=== PATIENT | female | born 1985 | race Caucasian/White ===

== ENCOUNTER → 2023-12-29 15:10 | Outpatient (REF) | payer OTHER, SELFPAY | LOC: REG 15:10 | PROVIDERS: ATTENDING PHYSICIAN Obstetrics & Gynecology | DX: Z34.93 Encounter for supervision of normal pregnancy, unspecified, third trimester (principal) | CPT/HCPCS: 36415; 86850; 86900; 86901; J2790 ==

== ENCOUNTER → 2024-02-23 15:35 | Outpatient (REF) | payer OTHER, SELFPAY | LOC: PNTC 15:35 | PROVIDERS: ATTENDING PHYSICIAN Obstetrics & Gynecology | DX: O99.280 Endocrine, nutritional and metabolic diseases complicating pregnancy, unspecified trimester (principal); O09.819 Supervision of pregnancy resulting from assisted reproductive technology, unspecified trimester | CPT/HCPCS: 59025; 76815 ==

== ENCOUNTER → 2024-03-01 15:35 | Outpatient (REF) | payer OTHER, SELFPAY | LOC: PNTC 15:35 | PROVIDERS: ATTENDING PHYSICIAN Obstetrics & Gynecology | DX: O09.819 Supervision of pregnancy resulting from assisted reproductive technology, unspecified trimester (principal); O99.280 Endocrine, nutritional and metabolic diseases complicating pregnancy, unspecified trimester | CPT/HCPCS: 59025; 76815 ==

== ENCOUNTER → 2024-03-08 14:27 | Outpatient (REF) | payer OTHER, SELFPAY | LOC: PNTC 14:27 | PROVIDERS: ATTENDING PHYSICIAN Obstetrics & Gynecology | DX: O09.819 Supervision of pregnancy resulting from assisted reproductive technology, unspecified trimester (principal); O99.280 Endocrine, nutritional and metabolic diseases complicating pregnancy, unspecified trimester | CPT/HCPCS: 59025; 76816 ==

== ENCOUNTER → 2024-03-15 14:32 | Outpatient (REF) | payer OTHER, SELFPAY | LOC: PNTC 14:32 | PROVIDERS: ATTENDING PHYSICIAN Obstetrics & Gynecology | DX: O09.819 Supervision of pregnancy resulting from assisted reproductive technology, unspecified trimester (principal); O99.280 Endocrine, nutritional and metabolic diseases complicating pregnancy, unspecified trimester | CPT/HCPCS: 59025; 76815; 76818 ==

== ENCOUNTER 2024-03-18 19:27 | Inpatient (IN) | payer OTHER, SELFPAY ==
[2024-03-18 19:49] VITALS: BP 143/82; BMI 28.1
[2024-03-18 20:36] LABS: % Basophils 0.4 % (0-2); % Eosinophils 2.9 % (0-6); % Immature Granulocytes 0.6 % (0-0.5); % Lymphocytes 22.9 % (20.5-51.1); % Monocytes 6.7 % (1.7-9.3); % Neutrophils 66.5 % (42.2-75.2); Absolute Eosinophils 0.2 10^3/uL (0-0.7); Absolute Immature Granulocytes 0.1 10^3/uL (0-0.05); Absolute Lymphocytes 1.9 10^3/uL (1.2-3.4); Absolute Monocytes 0.6 10^3/uL (0.1-0.6); Absolute Neutrophils 5.5 10^3/uL (1.4-6.5); Hematocrit 37.7 % (37.0-47.0); Hemoglobin 13.5 g/dL (12.0-16.0); Mean Corp Hgb Conc. 35.8 g/dL (33.0-37.0); Mean Corpuscular Hgb 34.8 pg (27.0-31.0); Mean Corpuscular Volume 97.2 fL (81.0-99.0); Mean Platelet Volume 11.9 fL (7.4-10.4); Nucleated Red Blood Cells % 0 %; Platelet Count 158 10^3/uL (130-400); Red Blood Cell Count 3.88 10^6/uL (4.20-5.40); Red Cell Dist. Width 12.8 % (11.5-14.5); White Blood Cell Count 8.3 10^3/uL (4.8-10.8)
[2024-03-18] MEDS: CYTOTEC 50 MICROGRAM VAG (21:07)
[2024-03-18 21:38] LABS: Urine Albumin Negative (Neg - Trace); Urine Bilirubin Negative (Negative); Urine Character Clear (Clear); Urine Color Straw; Urine Glucose Negative (Negative); Urine Ketone Negative (Negative); Urine Leukocyte Trace (Negative); Urine Nitrite Negative (Negative); Urine Occult Blood Negative (Negative); Urine Urobilinogen Negative (Neg - 1+)
[2024-03-18 21:46] LABS: Urine Bacteria Few (Negative); Urine Red Blood Cell 0-2 /HPF (0-2); Urine White Cell 0-2 /HPF (0-5)
[2024-03-18 21:56] LABS: ALT (SGPT) 17 U/L (0-35); AST (SGOT) 28 U/L (14-36); Albumin 3.4 g/dl (3.5-5.0); Alkaline Phosphatase 193 U/L (38-126); Blood Urea Nitrogen 16 mg/dl (7-17); Calcium 9.2 mg/dl (8.4-10.2); Carbon Dioxide 21 mmol/L (22-30); Chloride 106 mmol/L (98-107); Estimated Creatinine Clearance > 125 ml/min; Glucose 147 mg/dl (70-99); Potassium 4.2 mmol/L (3.5-5.1); Sodium 135 mmol/L (135-145); Total Bilirubin 0.2 mg/dl (0.2-1.3); Total Protein 5.9 g/dl (6.3-8.2); eGFR > 60.00
[2024-03-18 22:04] LABS: Protein/creatinine Ratio 1.1; Urine Protein 14 mg/dl
[2024-03-19] MEDS: CYTOTEC 50 MICROGRAM PO (01:34)
[2024-03-19] MEDS: CYTOTEC PO ×4 (05:55→16:52)
[2024-03-19] MEDS: LR 1000 IV ×3 (07:00→17:49)
[2024-03-19] MEDS: SUBLIMAZE 100 MCG EPIDURAL (07:15)
[2024-03-19] MEDS: FENTANYL/BUPIVACAINE 100 EPIDURAL ×3 (07:16→21:33)
[2024-03-19] MEDS: SYNTHROID 88 MCG PO (08:31)
[2024-03-19] MEDS: PITOCIN 30 UNITS/NSS 500 ML IV (10:50)
[2024-03-20] MEDS: TYLENOL 1000 MG PO (01:55)
[2024-03-20] MEDS: GENTAMICIN 59.875 MG IV (02:08)
[2024-03-20] MEDS: BICITRA 30 ML PO (02:48)
[2024-03-20] MEDS: CLEOCIN 50 IV ×3 (02:51→17:42)
[2024-03-20 03:38] LABS: Cord ABG Comment CORD BLOOD
[2024-03-20 03:43] LABS: B.E. Cord ABG -3.5 mMOL/L; HCO3 Cord ABG 21.5 mmol/L; O2 Saturation % Cord ABG 61.6 %; PCO2 Cord ABG 38 mmHg; PO2 Cord ABG 29 mmHg; pH Cord ABG 7.36
[2024-03-20] MEDS: TORADOL 15 MG IV ×4 (05:17→23:31)
[2024-03-20] MEDS: SYNTHROID 88 MCG PO (06:43)
[2024-03-20] MEDS: AMPICILLIN 108 MG IV ×3 (08:34→20:45)
[2024-03-20] MEDS: PRENATAL PLUS 1 TABLET PO (08:35)
[2024-03-20 12:42] LABS: Hemoglobin 12.3 g/dL (12.0-16.0); Mean Corp Hgb Conc. 36.2 g/dL (33.0-37.0); Mean Corpuscular Hgb 35.2 pg (27.0-31.0); Mean Corpuscular Volume 97.4 fL (81.0-99.0); Mean Platelet Volume 11.8 fL (7.4-10.4); Nucleated Red Blood Cells % 0 %; Platelet Count 176 10^3/uL (130-400); Red Blood Cell Count 3.49 10^6/uL (4.20-5.40); White Blood Cell Count 35.2 10^3/uL (4.8-10.8)
[2024-03-20] MEDS: TYLENOL 650 MG PO (13:58)
[2024-03-20] MEDS: SENOKOT-S 1 TABLET PO (13:58)
[2024-03-20 14:25] LABS: Absolute Neutrophils -Man Diff 33.7 10^3/uL (1.4-6.5); Band Neutrophils 20 % (0-3); Lymphocytes 3 % (20-51); Monocytes 1 % (2-9); Segmented Neutrophils 76 % (42-75)
[2024-03-20 14:26] LABS: Normal RBC Morphology Yes; Platelets Checked YES; Total Cells Counted 100
[2024-03-20] MEDS: AMPICILLIN IV (20:45)
[2024-03-21] MEDS: CLEOCIN 50 IV ×3 (02:28→18:04)
[2024-03-21] MEDS: AMPICILLIN 108 MG IV ×4 (03:04→20:45)
[2024-03-21 04:58] LABS: Hemoglobin 10.1 g/dL (12.0-16.0); Mean Corp Hgb Conc. 36.1 g/dL (33.0-37.0); Mean Corpuscular Hgb 34.6 pg (27.0-31.0); Mean Corpuscular Volume 95.9 fL (81.0-99.0); Mean Platelet Volume 11.7 fL (7.4-10.4); Platelet Count 158 10^3/uL (130-400); Red Blood Cell Count 2.92 10^6/uL (4.20-5.40); Red Cell Dist. Width 13.3 % (11.5-14.5); White Blood Cell Count 21.6 10^3/uL (4.8-10.8)
[2024-03-21] MEDS: TORADOL 15 MG IV (04:58)
[2024-03-21] MEDS: SYNTHROID 88 MCG PO (06:07)
[2024-03-21] MEDS: PRENATAL PLUS 1 TABLET PO (07:33)
--- NOTE | 2024-03-21 07:35 | W.PN.ANS.POP ---
Anesthesia Post Operative
- Anesthesia Post Op Note
Vital Signs Stable-See Nursing Note: Yes
Airway Patent: Yes
Adequate Pain Control: Yes
Change in Mental Status: No
Current Postoperative Nausea & Vomiting: No
Anesthesia Complications: No
General Anesthetic Recall: No
Unplanned Admission: No
Post Op Hydration Adequate: Yes
[2024-03-21] MEDS: TYLENOL 650 MG PO ×2 (09:14→17:53)
[2024-03-21] MEDS: GENTAMICIN 59.875 MG IV (10:29)
[2024-03-21] MEDS: MOTRIN 600 MG PO ×2 (13:55→20:29)
[2024-03-21] MEDS: MYLICON 80 MG PO (22:58)
[2024-03-22] MEDS: CLEOCIN 50 IV ×2 (02:02→10:03)
[2024-03-22] MEDS: TYLENOL 650 MG PO ×4 (02:14→21:04)
[2024-03-22] MEDS: MOTRIN 600 MG PO ×4 (02:15→21:03)
[2024-03-22] MEDS: AMPICILLIN 108 MG IV ×2 (02:29→08:13)
[2024-03-22] MEDS: SYNTHROID 88 MCG PO (06:20)
[2024-03-22 06:36] LABS: % Basophils 0.4 % (0-2); % Eosinophils 1.5 % (0-6); % Immature Granulocytes 0.7 % (0-0.5); % Lymphocytes 9.3 % (20.5-51.1); % Monocytes 3.9 % (1.7-9.3); % Neutrophils 84.2 % (42.2-75.2); Absolute Basophils 0.1 10^3/uL (0-0.2); Absolute Eosinophils 0.3 10^3/uL (0-0.7); Absolute Immature Granulocytes 0.1 10^3/uL (0-0.05); Absolute Lymphocytes 1.7 10^3/uL (1.2-3.4); Absolute Monocytes 0.7 10^3/uL (0.1-0.6); Absolute Neutrophils 15.7 10^3/uL (1.4-6.5); Hematocrit 28.5 % (37.0-47.0); Hemoglobin 9.8 g/dL (12.0-16.0); Mean Corp Hgb Conc. 34.4 g/dL (33.0-37.0); Mean Corpuscular Hgb 33.9 pg (27.0-31.0); Mean Corpuscular Volume 98.6 fL (81.0-99.0); Mean Platelet Volume 10.9 fL (7.4-10.4); Nucleated Red Blood Cells % 0 %; Platelet Count 203 10^3/uL (130-400); Red Blood Cell Count 2.89 10^6/uL (4.20-5.40); Red Cell Dist. Width 13.5 % (11.5-14.5); White Blood Cell Count 18.7 10^3/uL (4.8-10.8)
[2024-03-22] MEDS: PRENATAL PLUS 1 TABLET PO (08:13)
[2024-03-22] MEDS: FEOSOL 325 MG PO (08:13)
[2024-03-22] MEDS: SENOKOT-S 1 TABLET PO (08:17)
[2024-03-22] MEDS: MYLICON 80 MG PO (21:04)
[2024-03-23] MEDS: MOTRIN 600 MG PO ×2 (04:40→11:42)
[2024-03-23] MEDS: TYLENOL 650 MG PO (04:40)
[2024-03-23] MEDS: SYNTHROID 88 MCG PO (06:18)
[2024-03-23] MEDS: FEOSOL 325 MG PO (08:06)
[2024-03-23] MEDS: PRENATAL PLUS 1 TABLET PO (08:06)
[2024-03-23] MEDS: SENOKOT-S 1 TABLET PO (08:06)
[2024-03-23 16:07] LABS: Syphilis/T. pallidum Ab Reflex Negative (Negative)
== END 2024-03-23 12:11 | disposition home or self-care (01) | DRG 786 ==
LOC: LDRP 19:27
PROVIDERS: Obstetrics & Gynecology; ADMITTING PHYSICIAN Obstetrics & Gynecology; FAMILY PHYSICIAN Nurse Practitioner Gerontology
PROC: 10H07YZ Insertion of Other Device into Products of Conception, Via Natural or Artificial Opening (ICD-10-PCS; 2024-03-19)
PROC: 3E0P7VZ Introduction of Hormone into Female Reproductive, Via Natural or Artificial Opening (ICD-10-PCS; 2024-03-19)
PROC: 3E033VJ Introduction of Other Hormone into Peripheral Vein, Percutaneous Approach (ICD-10-PCS; 2024-03-19)
PROC: 10D00Z1 Extraction of Products of Conception, Low, Open Approach (ICD-10-PCS; 2024-03-20)
DX: O99.284 Endocrine, nutritional and metabolic diseases complicating childbirth (principal); O41.1230 Chorioamnionitis, third trimester, not applicable or unspecified; N39.0 Urinary tract infection, site not specified; O75.3 Other infection during labor; Z3A.39 39 weeks gestation of pregnancy; Z37.0 Single live birth; O14.04 Mild to moderate pre-eclampsia, complicating childbirth; O62.2 Other uterine inertia; O99.02 Anemia complicating childbirth; E06.3 Autoimmune thyroiditis; O77.0 Labor and delivery complicated by meconium in amniotic fluid
CPT/HCPCS: 88307; 59025; 80053; 81003; 81015; 82570; 82803; 84156; 85025; 85027; 86780; 86850; 86870; 86900; 86901

== ENCOUNTER → 2024-05-06 16:00 | Outpatient (REF) | payer OTHER, SELFPAY | LOC: RAD 16:00 | PROVIDERS: ATTENDING PHYSICIAN Obstetrics & Gynecology; FAMILY PHYSICIAN Nurse Practitioner Gerontology | DX: O73.1 Retained portions of placenta and membranes, without hemorrhage (principal) | CPT/HCPCS: 76830; 76856 ==

== ENCOUNTER 2024-05-14 06:20 | Day surgery (SDC) | payer OTHER, SELFPAY ==
[2024-05-14 08:30] VITALS: BMI 23.7
[2024-05-14 08:40] VITALS: BP 117/67
[2024-05-14 08:49] VITALS: BMI 23.7
[2024-05-14] MEDS: NORMOSOL-R/PLASMALYTE-A 1000 IV (08:50)
[2024-05-14 10:44] VITALS: BP 107/69
[2024-05-14 10:45] VITALS: BP 105/61
[2024-05-14 11:00] VITALS: BP 107/72
[2024-05-14 11:15] VITALS: BP 98/73
[2024-05-14 11:27] VITALS: BP 109/65
== END 2024-05-14 12:05 | disposition home or self-care (01) ==
LOC: SDS 06:20
PROVIDERS: ATTENDING PHYSICIAN Obstetrics & Gynecology
DX: O72.2 Delayed and secondary postpartum hemorrhage (principal)
CPT/HCPCS: 59160; 88305; 76998